=== PATIENT | female | born 1985 | race Caucasian/White ===

== ENCOUNTER → 2017-04-01 | Outpatient (CLI) | payer MEDICAID ==
[~2017-04-01] MED LIST: ADDE30TA PO; BACT800T5 PO; DIAZ10 PO; FLUO10TA PO; LORTA5 PO
== END ==
LOC: HPND 08:51
PROVIDERS: ATTEND Obstetrics & Gynecology
DX: O35.1XX0 Maternal care for (suspected) chromosomal abnormality in fetus, not applicable or unspecified (principal)
CPT/HCPCS: 76811; 76825; 76827; 93325

== ENCOUNTER → 2017-04-27 | Outpatient (CLI) | payer MEDICAID | LOC: HPND 10:20 | PROVIDERS: ATTEND Obstetrics & Gynecology | DX: O35.2XX0 Maternal care for (suspected) hereditary disease in fetus, not applicable or unspecified (principal); O99.323 Drug use complicating pregnancy, third trimester; O99.333 Smoking (tobacco) complicating pregnancy, third trimester; Z3A.29 29 weeks gestation of pregnancy | CPT/HCPCS: 76816 ==

== ENCOUNTER → 2017-05-26 | Outpatient (CLI) | payer MEDICAID | LOC: HPND 09:53 | PROVIDERS: ATTEND Obstetrics & Gynecology | DX: O99.322 Drug use complicating pregnancy, second trimester (principal); O99.332 Smoking (tobacco) complicating pregnancy, second trimester | CPT/HCPCS: 76816 ==

== ENCOUNTER 2018-03-15 14:43 | Emergency (ER) | payer MEDICAID ==
[~2018-03-15] VITALS: Ht 162.6 cm; Wt 58.0 kg
[2018-03-15 15:09] VITALS: BP 113/59; PULSE 59; RESP 18; TEMP 98; O2SAT 97
[2018-03-15] MEDS ORDERED: MEDR4PAK PO (16:50)
[2018-03-15] MEDS ORDERED: NAPR500T2 PO (16:50)
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
[2018-03-15] MEDS ORDERED: NAPROXEN 500 MG TAB PO ONE (17:00)
== END 2018-03-15 17:32 | disposition home or self-care (01) ==
LOC: NEPD 14:43
DX: G62.9 Polyneuropathy, unspecified (principal); Z72.0 Tobacco use
CPT/HCPCS: 99283; L3908

== ENCOUNTER 2018-04-11 00:03 | Inpatient (IN) ==
[2018-04-11] MEDS ORDERED: Acetaminophen 500 MG Tablet PO ONE (02:24)
[2018-04-11] MEDS ORDERED: Acetaminophen 325 MG Tablet ONE (02:42)
[2018-04-11] MEDS ORDERED: Acetaminophen 325 MG Tablet PO ONE (02:47)
--- NOTE | 2018-04-11 03:01 | ED ---
HPI General Chief Complaint: Chest Pain Stated Complaint: CHEST PAIN Time Seen by Provider: 04/11/18 02:24 Source: patient Mode of arrival: ambulatory Limitations: no limitations History of Present Illness HPI narrative: 33-year-old female presents to the emergency for complaint of retrosternal chest pain 5-6 hours. Patient also complains of shortness of breath with dizziness. No sweats no nausea no vomiting. Patient is taken no medications prior to arrival to the emergency department. Patient has prior history of similar discomfort although not as intense and not as long-lasting. Patient rates her pain 7/10 in intensity. Patient is unable to identify exacerbating or alleviating factors. No referred neck jaw back shoulder arm or abdominal pain. Patient denies known history of hypertension dyslipidemia diabetes CAD. Patient admits to tobacco use denies alcohol or substance use. Last menstrual period 9 months ago at time of delivery of son reportedly. Patient has not had menses during that timeframe. Patient has not followed up with PHOTO MANAGER. Complete Quality Measures for STEMI Alert Patients Duration: constant Pain location: substernal Severity: moderate Quality: tightness Pain radiation: none Relieving factors: nothing Exacerbating factors: nothing Related Data On Oral Contraceptives: No Home Medications Medication Instructions Recorded Confirmed No Known Home Medications 04/11/18 04/11/18 Allergies Allergy/AdvReac Type Severity Reaction Status Date / Time *MDRO Multi-Drug Resistant AdvReac Unknown Uncoded 03/15/18 16:31 Organism Review of Systems ROS Unobtainable All other systems reviewed negative except as stated in HPI PMFSH Social History Social History Substance History: Past History Smoking Status: Current every day smoker Tobacco Type: Cigarettes How Often Do You Have a Drink Containing Alcohol: Never Recent Travel in [facility] within the Last 8 Weeks: No Recent Out of Country Travel within the Last 8 Weeks: No Exam Narrative Exam Narrative: GENERAL: Well-nourished, well-developed patient. SKIN: Focused skin assessment warm/dry. HEAD: Normocephalic. EYES: No scleral icterus. No injection or drainage. NECK: Supple, trachea midline. No JVD or lymphadenopathy. CARDIOVASCULAR: Regular rate and rhythm without murmurs, gallops, or rubs. RESPIRATORY: Breath sounds equal bilaterally. No accessory muscle use. GASTROINTESTINAL: Abdomen soft, non-tender, nondistended. MUSCULOSKELETAL: No cyanosis, or edema. BACK: Nontender without obvious deformity. No CVA tenderness. Course Reevaluation(s) Reevaluation #1: Patient placed on medical claims assistant with continuous pulse oximetry IV access obtained specimens collected and sent for resulting EKG performed which reveals no acute ST elevation injury pattern sinus tachycardia rate 102 normal axis and intervals, artifact present at baseline; patient administered Toradol 30 mg IV Reevaluation #2: Metabolic panel values grossly normal range except for potassium of 5.2 secondary to moderate hemolysis Patient requesting acetaminophen for headache complaint; Tylenol 650 mg p.o. 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; discussed with admitting MD Dr Matthew Initial Documented Vital Signs Temperature 99.1 F 04/11/18 01:59 Pulse Rate 98 H 04/11/18 01:59 Respiratory Rate 20 04/11/18 01:59 Blood Pressure 128/67 04/11/18 01:59 Pulse Oximetry 99 04/11/18 01:59 Last Documented Vital Signs Temperature 98.0 F 04/11/18 03:18 Pulse Rate 88 04/11/18 05:56 Respiratory Rate 18 04/11/18 03:18 Blood Pressure 126/70 04/11/18 03:18 Pulse Oximetry 98 04/11/18 03:18 Clinical Decision Support HEART Score Questions History: Slightly suspicious EKG: Normal Age: < 45 years Risk Factors: 1-2 Risk Factors (tobacco use; h/o substance use) Initial Troponin: Greater than 3 x Normal Limit Heart Score HEART Score: 3 3 Medical Decision Making Lab Data Result diagrams: 04/11/18 00:45 04/11/18 00:45 Lab Results 04/11/18 04/11/18 04/11/18 Range/Units 00:45 00:45 00:45 WBC 12.6 H (4.0-11.0) th/mm3 RBC 4.59 (4.00-5.30) mil/mm3 Hgb 13.8 (11.6-15.3) gm/dL Hct 41.5 (35.0-46.0) % MCV 90.4 (80.0-100.0) fL MCH 30.0 (27.0-34.0) pg MCHC 33.2 (32.0-36.0) % RDW 13.6 (11.6-17.2) % Plt Count 225 (150-450) th/mm3 MPV 7.7 (7.0-11.0) fL Neut % (Auto) 71.1 H (16.0-70.0) % Lymph % (Auto) 21.0 (9.0-44.0) % [place] % (Auto) 7.2 (0.0-8.0) % Eos % (Auto) 0.1 (0.0-4.0) % Baso % (Auto) 0.6 (0.0-2.0) % Neut # (Auto) 9.0 H (1.8-7.7) th/mm3 Lymph # (Auto) 2.6 (1.0-4.8) th/mm3 [place] # (Auto) 0.9 (0.0-0.9) th/mm3 Eos # (Auto) 0.0 (0.0-0.4) th/mm3 Baso # (Auto) 0.1 (0.0-0.2) th/mm3 WBC Differential . Differential Comment Auto diff final PT (9.8-11.6) sec INR Ratio APTT (24.3-30.1) sec D-Dimer Quant (PE/DVT) (0.00-0.50) mg/L FEU Sodium 139 (136-145) meq/L Potassium 5.2 H (3.5-5.1) meq/L Chloride 102 (98-107) meq/L Carbon Dioxide 27.5 (21.0-32.0) meq/L Anion Gap 10 (5-15) meq/L BUN 17 (7-18) mg/dL Creatinine 1.00 (0.50-1.00) mg/dL Estimated GFR 65 L (>89) mL/min Random Glucose 91 (74-106) mg/dL Calcium 9.2 (8.5-10.1) mg/dL Total Bilirubin 0.4 (0.2-1.0) mg/dL AST 86 H (15-37) U/L ALT 74 H (10-53) U/L Alkaline Phosphatase 76 (45-117) U/L Total Creatine Kinase 1356 H (26-192) U/L CK-MB (CK-2) 3.8 H (0.5-3.6) ng/mL CK-MB (CK-2) % 0.3 (0.0-4.0) % Troponin I 0.25 H (0.02-0.05) ng/mL Total Protein 8.8 H (6.4-8.2) g/dL Albumin 4.2 (3.4-5.0) g/dL Ur Collection Type Random Urine Color Yellow (Yellw/Straw) Urine Clarity Hazy H (Clear) Urine pH 6.0 (5.0-8.5) Ur Specific [place] 1.021 (1.002-1.035) Urine Protein Negative (Neg-Trace) mg/dL Urine Glucose (UA) Negative (Negative) mg/dL Urine Ketones Trace (Negative) mg/dL Urine Occult Blood Negative (Negative) Urine Nitrate Negative (Negative) Urine Bilirubin Negative (Negative) Urine Urobilinogen 2.0 H (Less than 2) mg/dL Ur Leukocyte Esterase Small (Negative) Urine RBC Less than 1 (0-3) /hpf Urine WBC 2 (0-5) /hpf Urine Mucus Few H (Occasional) /lpf Micro UA Comment Culture not ind Urine Culture Comments Culture not ind Urine Collection Time 115 hours Urine Opiates Screen (Neg) Ur Barbiturates Screen (Neg) Ur Amphetamines Screen (Neg) U Benzodiazepines Scrn (Neg) Urine Cocaine Screen (Neg) U Cannabinoids Screen (Neg) 04/11/18 04/11/18 Range/Units 00:45 00:45 WBC (4.0-11.0) th/mm3 RBC (4.00-5.30) mil/mm3 Hgb (11.6-15.3) gm/dL Hct (35.0-46.0) % MCV (80.0-100.0) fL MCH (27.0-34.0) pg MCHC (32.0-36.0) % RDW (11.6-17.2) % Plt Count (150-450) th/mm3 MPV (7.0-11.0) fL Neut % (Auto) (16.0-70.0) % Lymph % (Auto) (9.0-44.0) % [place] % (Auto) (0.0-8.0) % Eos % (Auto) (0.0-4.0) % Baso % (Auto) (0.0-2.0) % Neut # (Auto) (1.8-7.7) th/mm3 Lymph # (Auto) (1.0-4.8) th/mm3 [place] # (Auto) (0.0-0.9) th/mm3 Eos # (Auto) (0.0-0.4) th/mm3 Baso # (Auto) (0.0-0.2) th/mm3 WBC Differential Differential Comment PT 10.1 (9.8-11.6) sec INR 1.0 Ratio APTT 21.0 L (24.3-30.1) sec D-Dimer Quant (PE/DVT) 0.39 (0.00-0.50) mg/L FEU Sodium (136-145) meq/L Potassium (3.5-5.1) meq/L Chloride (98-107) meq/L Carbon Dioxide (21.0-32.0) meq/L Anion Gap (5-15) meq/L BUN (7-18) mg/dL Creatinine (0.50-1.00) mg/dL Estimated GFR (>89) mL/min Random Glucose (74-106) mg/dL Calcium (8.5-10.1) mg/dL Total Bilirubin (0.2-1.0) mg/dL AST (15-37) U/L ALT (10-53) U/L Alkaline Phosphatase (45-117) U/L Total Creatine Kinase (26-192) U/L CK-MB (CK-2) (0.5-3.6) ng/mL CK-MB (CK-2) % (0.0-4.0) % Troponin I (0.02-0.05) ng/mL Total Protein (6.4-8.2) g/dL Albumin (3.4-5.0) g/dL Ur Collection Type Urine Color (Yellw/Straw) Urine Clarity (Clear) Urine pH (5.0-8.5) Ur Specific [place] (1.002-1.035) Urine Protein (Neg-Trace) mg/dL Urine Glucose (UA) (Negative) mg/dL Urine Ketones (Negative) mg/dL Urine Occult Blood (Negative) Urine Nitrate (Negative) Urine Bilirubin (Negative) Urine Urobilinogen (Less than 2) mg/dL Ur Leukocyte Esterase (Negative) Urine RBC (0-3) /hpf Urine WBC (0-5) /hpf Urine Mucus (Occasional) /lpf Micro UA Comment Urine Culture Comments Urine Collection Time hours Urine Opiates Screen Neg (Neg) Ur Barbiturates Screen Neg (Neg) Ur Amphetamines Screen Pos H (Neg) U Benzodiazepines Scrn Neg (Neg) Urine Cocaine Screen Neg (Neg) U Cannabinoids Screen Neg (Neg) Imaging Data Radiologist's impression: ITS Impressions Chest X-Ray 04/11/18 05:11 CONCLUSION: No active disease. Discharge Plan Discharge Disposition Patient Disposition: 30 Still Patient Discharge Details Discharge Problem: Chest pain, Substance abuse Physicians Team ED Provider: Marcia Rivera ED Midlevel Provider: Kevin Bingham Primary Care Provider: Primary Care Anna Gallardo Attending Provider: Tip Coates Discharge Interventions Interventions: Vital Signs Last Done: 04/11/18 03:18 Status ED Status: Admitted Patient
[2018-04-11 03:08] LABS: Prothrombin Time 10.1 sec (9.8-11.6)
[2018-04-11 03:09] LABS: D-Dimer 0.39 mg/L FEU (0.00-0.50)
[2018-04-11 03:11] LABS: Baso # (Auto) 0.1 th/mm3 (0.0-0.2); Baso % (Auto) 0.6 % (0.0-2.0); Collection Time,Urine 115 hours; Eos % (Auto) 0.1 % (0.0-4.0); Hematocrit 41.5 % (35.0-46.0); Hemoglobin 13.8 gm/dL (11.6-15.3); Lymph # (Auto) 2.6 th/mm3 (1.0-4.8); Mean Corpuscular HGB Conc 33.2 % (32.0-36.0); Mean Corpuscular Volume 90.4 fL (80.0-100.0); Mean Platelet Volume 7.7 fL (7.0-11.0); Mono # (Auto) 0.9 th/mm3 (0.0-0.9); Mono % (Auto) 7.2 % (0.0-8.0); Neut % (Auto) 71.1 % (16.0-70.0); Platelet Count 225 th/mm3 (150-450); Red Blood Count 4.59 mil/mm3 (4.00-5.30); Red Cell Distribution Width 13.6 % (11.6-17.2); White Blood Count 12.6 th/mm3 (4.0-11.0)
[2018-04-11 03:12] LABS: Bilirubin,Urine Negative (Negative); Clarity,Urine Hazy (Clear); Color,Urine Yellow (Yellw/Straw); Glucose,Urine (UA) Negative (Negative); Leukocyte Esterase,Urine Small (Negative); Nitrite,Urine Negative (Negative); Specific Gravity,Urine 1.021 (1.002-1.035)
[2018-04-11 03:13] LABS: Mucus,Urine Few /lpf (Occasional)
[2018-04-11 03:48] LABS: Alanine Aminotransferase 74 U/L (10-53); Albumin 4.2 g/dL (3.4-5.0); Alkaline Phosphatase 76 U/L (45-117); Anion Gap 10 meq/L (5-15); Aspartate Aminotransferase 86 U/L (15-37); Blood Urea Nitrogen 17 mg/dL (7-18); Calcium 9.2 mg/dL (8.5-10.1); Carbon Dioxide 27.5 meq/L (21.0-32.0); Chloride 102 meq/L (98-107); Creatine Kinase 1356 U/L (26-192); Glomerular Filtration Rate 65 mL/min (>89); Glucose,Random 91 mg/dL (74-106); Potassium 5.2 meq/L (3.5-5.1); Sodium 139 meq/L (136-145); Total Protein 8.8 g/dL (6.4-8.2); Troponin I 0.25 ng/mL (0.02-0.05)
[2018-04-11 04:03] LABS: CKMB Percent 0.3 % (0.0-4.0); Creatine Kinase MB 3.8 ng/mL (0.5-3.6)
[2018-04-11 04:06] LABS: Amphetamine Screen,Urine Pos (Neg); Barbiturate Screen,Urine Neg (Neg); Cannabinoid Screen,Urine Neg (Neg); Cocaine Screen,Urine Neg (Neg); Opiate Screen,Urine Neg (Neg)
[2018-04-11] MEDS ORDERED: Morphine Inj 4 MG/ML Vial IV.PUSH PRN (05:45)
[2018-04-11] MEDS ORDERED: Acetaminophen 500 MG Tablet PO PRN (05:45)
--- NOTE | 2018-04-11 06:12 | XR ---
EXAM DATE: 04/11/2018 5:56 AM EDT AGE/SEX: 33 years / Female INDICATIONS: Chest pain. CLINICAL DATA: This is the patient's initial encounter. Patient reports that signs and symptoms have been present for 1 day and indicates a pain score of 6/10. MEDICAL/SURGICAL HISTORY: None. None. COMPARISON: No prior exams available for comparison. FINDINGS: A single AP view of the chest demonstrates the lungs to be symmetrically aerated without evidence of mass, infiltrate or effusion. The cardiomediastinal contours are unremarkable. Osseous structures a re intact. CONCLUSION: No active disease. Electronically signed by: Kevin Pardo MD 04/11/2018 6:11 AM EDT
[2018-04-11] MEDS: Sod Chloride 0.9% Inj 1,000 ML IV.CONT SCH ×2 (06:25→07:00)
[2018-04-11 07:57] LABS: Troponin I 0.19 ng/mL (0.02-0.05)
[2018-04-11 08:12] LABS: CKMB Percent 0.3 % (0.0-4.0); Creatine Kinase MB 3.3 ng/mL (0.5-3.6)
[2018-04-11] MEDS ORDERED: Aspirin 325 MG Tablet PO SCH (09:00)
[2018-04-11] MEDS ORDERED: Methadone 10 MG Tablet PO ONE (09:07)
[2018-04-11] MEDS ORDERED: Sod Chloride 0.9% Inj 1,000 ML IV.CONT SCH (11:18)
--- NOTE | 2018-04-11 11:58 | P.HPHBS ---
Reason for Admit/HPI Reason for Admission: chest pain History of Present Illness: Patient is a 33 years old female jian smokes 1 pack per day, history of ADHD, history of substance abuse now on methadone ff by methadone clinic on 145 mg daily, lives iwth her mom who came in because of chest pain substernal while walking. patient states that she has been trying to get into shape and has been jogging more and since last evening complains of intermittent throbbing chest pain associated with lightheadedness. denies any fever or chills, nausea vomiting, or diarrhea, no urinary symptoms. Admits to not taking enough fluids patient at bedside is very emotional and tearful. admitted for further evaluation EKG shows sinus tachycardia- no acute STTw changes PMFSH - History History Provided By: Patient - Medical History Medical History: Medical History (Last Reviewed 04/11/18 @ 11:51 by Tip Coates MD) delivery delivered Drug abuse Ectopic , tubal - Family History Family History: Family History (Last Updated 04/11/18 @ 11:51 by Tip Coates MD) Father No problems noted. Mother Substance abuse - Tobacco History Tobacco Use In Past 30 Days: Yes Smoking Status: Current every day smoker Tobacco Type: Cigarettes - Alcohol History How Often Do You Have a Drink Containing Alcohol: Never - Substance Use History Substance History: Past History - Substance Use Type Methamphetamine Status: Early Remission - Travel History Recent Travel in the [place] Within the Last 8 Weeks: No Recent Travel Out of the Country Within the Last 8 Weeks: No - Immunization History Tetanus Immunization: Unsure Medications and Allergies Active Medications: Active Medications Acetaminophen (Tylenol) 500 mg PO Q4H PRN PRN Reason: HEADACHE Hydrocodone Bitart/Acetaminophen ([place] 7.5/325) 1 tab PO Q4H PRN PRN Reason: PAIN SCALE 1 TO 5 Last Admin: 04/11/18 08:28 Dose: 1 tab Aspirin (Aspirin) 325 mg PO DAILY SIMON Last Admin: 04/11/18 10:11 Dose: 325 mg Sodium Chloride (Ns Inj) 1,000 mls @ 125 mls/hr IV.CONT .Q8H SIMON Sodium Chloride (Ns Inj) 1,000 mls @ 100 mls/hr IV.CONT .Q10H SIMON Last Admin: 04/11/18 07:00 Dose: Not Given Methadone HCl (Dolophine) 145 mg PO DAILY [facility] Miscellaneous (Pill Splitter) 1 each OTHER UNSCH [facility] Morphine Sulfate (Morphine Inj) 2 mg IV.PUSH Q3H PRN PRN Reason: PAIN SCALE 6 TO 10 Nitroglycerin (Nitrostat Sl) 0.4 mg SL Q5M PRN PRN Reason: ANGINA Sodium Chloride (Ns Flush) 2 ml IV.FLUSH BID SIMON Sodium Chloride (Ns Flush) 2 ml IV.FLUSH PRN PRN PRN Reason: FLUSH AFTER USING IV ACCESS Allergies Allergy/AdvReac Type Severity Reaction Status Date / Time *MDRO Multi-Drug Resistant AdvReac Unknown Uncoded 03/15/18 16:31 Organism Home Medications Medication Instructions Recorded Confirmed Type methadone 145 mg PO DAILY 04/11/18 04/11/18 History Physical Exam Vital signs: Vital Signs 04/11/18 01:59 04/11/18 03:18 04/11/18 05:56 Temperature 99.1 F 98.0 F Pulse Rate 98 H 88 88 Respiratory Rate 20 18 Blood Pressure 128/67 126/70 Pulse Oximetry 99 98 04/11/18 08:30 Temperature 98.7 F Pulse Rate 98 H Respiratory Rate 17 Blood Pressure 120/61 Pulse Oximetry Intake & Output 04/10/18 04/11/18 04/11/18 18:59 06:59 18:59 Weight 60 kg - Constitutional no acute distress Comments: tearful adn amotional - Routine HEENT Exam Head: Present: normocephalic Eye: Present: EOMI ENT: Present: mucous membranes moist - Routine Neck Exam Present: supple - Routine Respiratory Exam Present: CTA bilaterally - Routine Cardiovascular Exam Present: RRR Comments: chest wall tender to even miimal touch - Routine Abdominal Exam Present: soft, normoactive bowel sounds - Routine Extremities Exam Present: full ROM, pulses intact (no edema), normal capillary refill - Routine Neurological Exam Present: alert, oriented X3, CN II-XII intact, normal reflexes, moving all extremities - Routine Psychiatric Exam Present: anxious (and emotional) Results - Labs CBC & Chem 7: 04/11/18 00:45 04/11/18 00:45 Labs: Laboratory Results - last 24 hr 04/11/18 04/11/18 04/11/18 00:45 00:45 00:45 WBC 12.6 H RBC 4.59 Hgb 13.8 Hct 41.5 MCV 90.4 MCH 30.0 MCHC 33.2 RDW 13.6 Plt Count 225 MPV 7.7 Neut % (Auto) 71.1 H Lymph % (Auto) 21.0 [place] % (Auto) 7.2 Eos % (Auto) 0.1 Baso % (Auto) 0.6 Neut # (Auto) 9.0 H Lymph # (Auto) 2.6 [place] # (Auto) 0.9 Eos # (Auto) 0.0 Baso # (Auto) 0.1 WBC Differential . Differential Comment Auto diff final PT INR APTT D-Dimer Quant (PE/DVT) Sodium 139 Potassium 5.2 H Chloride 102 Carbon Dioxide 27.5 Anion Gap 10 BUN 17 Creatinine 1.00 Estimated GFR 65 L Random Glucose 91 Calcium 9.2 Total Bilirubin 0.4 AST 86 H ALT 74 H Alkaline Phosphatase 76 Total Creatine Kinase 1356 H CK-MB (CK-2) 3.8 H CK-MB (CK-2) % 0.3 Troponin I 0.25 H Total Protein 8.8 H Albumin 4.2 Ur Collection Type Random Urine Color Yellow Urine Clarity Hazy H Urine pH 6.0 Ur Specific [place] 1.021 Urine Protein Negative Urine Glucose (UA) Negative Urine Ketones Trace Urine Occult Blood Negative Urine Nitrate Negative Urine Bilirubin Negative Urine Urobilinogen 2.0 H Ur Leukocyte Esterase Small Urine RBC Less than 1 Urine WBC 2 Urine Mucus Few H Micro UA Comment Culture not ind Urine Culture Comments Culture not ind Urine Collection Time 115 Urine Opiates Screen Ur Barbiturates Screen Ur Amphetamines Screen U Benzodiazepines Scrn Urine Cocaine Screen U Cannabinoids Screen 04/11/18 04/11/18 04/11/18 00:45 00:45 06:20 WBC RBC Hgb Hct MCV MCH MCHC RDW Plt Count MPV Neut % (Auto) Lymph % (Auto) [place] % (Auto) Eos % (Auto) Baso % (Auto) Neut # (Auto) Lymph # (Auto) [place] # (Auto) Eos # (Auto) Baso # (Auto) WBC Differential Differential Comment PT 10.1 INR 1.0 APTT 21.0 L D-Dimer Quant (PE/DVT) 0.39 Sodium Potassium Chloride Carbon Dioxide Anion Gap BUN Creatinine Estimated GFR Random Glucose Calcium Total Bilirubin AST ALT Alkaline Phosphatase Total Creatine Kinase 1178 H CK-MB (CK-2) 3.3 CK-MB (CK-2) % 0.3 Troponin I 0.19 H Total Protein Albumin Ur Collection Type Urine Color Urine Clarity Urine pH Ur Specific [place] Urine Protein Urine Glucose (UA) Urine Ketones Urine Occult Blood Urine Nitrate Urine Bilirubin Urine Urobilinogen Ur Leukocyte Esterase Urine RBC Urine WBC Urine Mucus Micro UA Comment Urine Culture Comments Urine Collection Time Urine Opiates Screen Neg Ur Barbiturates Screen Neg Ur Amphetamines Screen Pos H U Benzodiazepines Scrn Neg Urine Cocaine Screen Neg U Cannabinoids Screen Neg - Imaging Impressions Chest X-Ray 04/11/18 05:11 CONCLUSION: No active disease. Assessment and Plan - Plan * Involve patient in individual, family and milieu therapies. * Evaluate medication regiment. * Observe and evaluate for appropriate behavior on unit. * Discuss and plan for appropriate after care. Goals: * Evaluate symptoms of current psychiatric problem(s) * Stabilize behaviors and improve functionality * Diminish relationship conflicts * Improve academic performance Assessment: 33 years old feamle Chest pain- likely musculoskeletal pain- EKG negtive troponin indeterminate- doubt cardiac no chest pain free- but reproducible Acute rhabdomyolysis =- start IVF - NS 125 cc/hr - ff CK trend Elevated LFTs- - can be from rhabdomylysis - montior Methadon use History of ADHD - restart methadone- dose confirmed with emthadone clinic - OP ff upwith Dr. Weston Smoker - counselled -Nicotine patch amenorrhea for 2 years - advise OP ff up for work up with PCP - Discharge Discharge Criteria: * Denies suicidal ideation * Denies homicidal ideation * No evidence of psychosis
[2018-04-11 13:18] VITALS: RESP 18
[2018-04-11 13:50] VITALS: TEMP 98.3
--- NOTE | 2018-04-11 21:41 | P.HP ---
History of Present Illness Primary Care Physician: No Primary Care Physician History of Present Illness: Patient is a 33 years old female jian smokes 1 pack per day, history of ADHD, history of substance abuse now on methadone ff by methadone clinic on 145 mg daily, lives iwth her mom who came in because of chest pain substernal while walking. patient states that she has been trying to get into shape and has been jogging more and since last evening complains of intermittent throbbing chest pain associated with lightheadedness. denies any fever or chills, nausea vomiting, or diarrhea, no urinary symptoms. Admits to not taking enough fluids patient at bedside is very emotional and tearful. admitted for further evaluation EKG shows sinus tachycardia- no acute STTw changes - Inpatient Certification If this patient has been admitted as an Inpatient: I certify that the inpatient services were ordered in accordance with Medicare regulations governing the order. This includes certification that hospital inpatient services are reasonable and necessary and in the case of services not specified as inpatient-only under 42 CFR 419.22(n), that they are appropriately provided as inpatient services in accordance to with the 2-midnight benchmark under 43 CFR 412.3(e) Estimated Total Length of Stay (Days): 2 Plans for Post Hospital Care: Home Review of Systems All other systems reviewed negative except as stated in HPI PMFSH - History History Provided By: Patient - Medical History Medical History: Medical History (Last Reviewed 04/11/18 @ 12:20 by Jade Tate RN) delivery delivered Drug abuse Ectopic , tubal - Family History Family History: Family History (Last Reviewed 04/11/18 @ 12:20 by Jade Tate RN) Father No problems noted. Mother Substance abuse - Tobacco History Tobacco Use In Past 30 Days: Yes Smoking Status: Current every day smoker Tobacco Type: Cigarettes - Alcohol History How Often Do You Have a Drink Containing Alcohol: Never - Substance Use History Substance History: Past History - Substance Use Type Methamphetamine Status: Early Remission - Travel History Recent Travel in the [place] Within the Last 8 Weeks: No Recent Travel Out of the Country Within the Last 8 Weeks: No - Immunization History Tetanus Immunization: Unsure Medications and Allergies Allergies Allergy/AdvReac Type Severity Reaction Status Date / Time *MDRO Multi-Drug Resistant AdvReac Unknown Uncoded 03/15/18 16:31 Organism Home Medications Medication Instructions Recorded Confirmed Type methadone 145 mg PO DAILY 04/11/18 04/11/18 History Exam Vital signs: Vital Signs 04/11/18 01:59 04/11/18 03:18 04/11/18 05:56 Temperature 99.1 F 98.0 F Pulse Rate 98 H 88 88 Respiratory Rate 20 18 Blood Pressure 128/67 126/70 Pulse Oximetry 99 98 04/11/18 08:30 04/11/18 09:00 04/11/18 12:00 Temperature 98.7 F 97.9 F 98.3 F Pulse Rate 98 H 80 86 Respiratory Rate 17 18 18 Blood Pressure 120/61 122/73 117/57 L Pulse Oximetry 100 04/11/18 13:00 04/11/18 14:56 04/11/18 16:00 Temperature 98.3 F Pulse Rate 97 H 85 79 Respiratory Rate 18 Blood Pressure 124/71 Pulse Oximetry 98 Intake & Output 04/11/18 04/11/18 04/12/18 06:59 18:59 06:59 Weight 60 kg 55.868 kg Other: Weight On Admission 55.792 kg Narrative: - Constitutional no acute distress Comments: tearful and emotional - Routine HEENT Exam Head: Present: normocephalic Eye: Present: EOMI ENT: Present: mucous membranes moist - Routine Neck Exam Present: supple - Routine Respiratory Exam Present: CTA bilaterally - Routine Cardiovascular Exam Present: RRR Comments: chest wall tender to even miimal touch - Routine Abdominal Exam Present: soft, normoactive bowel sounds - Routine Extremities Exam Present: full ROM, pulses intact (no edema), normal capillary refill - Routine Neurological Exam Present: alert, oriented X3, CN II-XII intact, normal reflexes, moving all extremities - Routine Psychiatric Exam Present: anxious (and emotional) Results - Labs CBC & Chem 7: 04/11/18 00:45 04/11/18 00:45 Labs: Laboratory Results - last 24 hr 04/11/18 04/11/18 04/11/18 00:45 00:45 00:45 WBC 12.6 H RBC 4.59 Hgb 13.8 Hct 41.5 MCV 90.4 MCH 30.0 MCHC 33.2 RDW 13.6 Plt Count 225 MPV 7.7 Neut % (Auto) 71.1 H Lymph % (Auto) 21.0 [place] % (Auto) 7.2 Eos % (Auto) 0.1 Baso % (Auto) 0.6 Neut # (Auto) 9.0 H Lymph # (Auto) 2.6 [place] # (Auto) 0.9 Eos # (Auto) 0.0 Baso # (Auto) 0.1 WBC Differential . Differential Comment Auto diff final PT INR APTT D-Dimer Quant (PE/DVT) Sodium 139 Potassium 5.2 H Chloride 102 Carbon Dioxide 27.5 Anion Gap 10 BUN 17 Creatinine 1.00 Estimated GFR 65 L Random Glucose 91 Calcium 9.2 Total Bilirubin 0.4 AST 86 H ALT 74 H Alkaline Phosphatase 76 Total Creatine Kinase 1356 H CK-MB (CK-2) 3.8 H CK-MB (CK-2) % 0.3 Troponin I 0.25 H Total Protein 8.8 H Albumin 4.2 Ur Collection Type Random Urine Color Yellow Urine Clarity Hazy H Urine pH 6.0 Ur Specific [place] 1.021 Urine Protein Negative Urine Glucose (UA) Negative Urine Ketones Trace Urine Occult Blood Negative Urine Nitrate Negative Urine Bilirubin Negative Urine Urobilinogen 2.0 H Ur Leukocyte Esterase Small Urine RBC Less than 1 Urine WBC 2 Urine Mucus Few H Micro UA Comment Culture not ind Urine Culture Comments Culture not ind Urine Collection Time 115 Urine Opiates Screen Ur Barbiturates Screen Ur Amphetamines Screen U Benzodiazepines Scrn Urine Cocaine Screen U Cannabinoids Screen 04/11/18 04/11/18 04/11/18 00:45 00:45 06:20 WBC RBC Hgb Hct MCV MCH MCHC RDW Plt Count MPV Neut % (Auto) Lymph % (Auto) [place] % (Auto) Eos % (Auto) Baso % (Auto) Neut # (Auto) Lymph # (Auto) [place] # (Auto) Eos # (Auto) Baso # (Auto) WBC Differential Differential Comment PT 10.1 INR 1.0 APTT 21.0 L D-Dimer Quant (PE/DVT) 0.39 Sodium Potassium Chloride Carbon Dioxide Anion Gap BUN Creatinine Estimated GFR Random Glucose Calcium Total Bilirubin AST ALT Alkaline Phosphatase Total Creatine Kinase 1178 H CK-MB (CK-2) 3.3 CK-MB (CK-2) % 0.3 Troponin I 0.19 H Total Protein Albumin Ur Collection Type Urine Color Urine Clarity Urine pH Ur Specific [place] Urine Protein Urine Glucose (UA) Urine Ketones Urine Occult Blood Urine Nitrate Urine Bilirubin Urine Urobilinogen Ur Leukocyte Esterase Urine RBC Urine WBC Urine Mucus Micro UA Comment Urine Culture Comments Urine Collection Time Urine Opiates Screen Neg Ur Barbiturates Screen Neg Ur Amphetamines Screen Pos H U Benzodiazepines Scrn Neg Urine Cocaine Screen Neg U Cannabinoids Screen Neg - Imaging Impressions Chest X-Ray 04/11/18 05:11 CONCLUSION: No active disease. Caprini VTE Risk Assessment Caprini VTE Risk Assessment: No/Low Risk (score <= 1) Caprini Risk Assessment Model: Point Value = 1 Point Value = 2 Point Value = 3 Point Value = 5 Age 41-60 Minor surgery BMI > 25 kg/m2 Swollen legs Varicose veins or History of unexplained or recurrent spontaneous Oral contraceptives or hormone replacement Sepsis (< 1 month) Serious lung disease, including pneumonia (< 1 month) Abnormal pulmonary function Acute myocardial infarction Congestive heart failure (< 1 month) History of inflammatory bowel disease Medical patient at bed rest Age 61-74 Arthroscopic surgery Major open surgery (> 45 min) Laparoscopic surgery (> 45 min) Malignancy Confined to bed (> 72 hours) Immobilizing plaster cast Central venous access Age >= 75 History of VTE Family history of VTE Factor V Leiden Prothrombin [id number] Lupus anticoagulant Anticardiolipin antibodies Elevated serum homocysteine Heparin-induced thrombocytopenia Other congenital or acquired thrombophilia Stroke (< 1 month) Elective arthroplasty Hip, pelvis, or leg fracture Acute spinal cord injury (< 1 month) Prophylaxis Regimen: Total Risk Factor Score Risk Level Prophylaxis Regimen 0-1 Low Early ambulation 2 Moderate Order ONE of the following: *Sequential Compression Device (SCD) *Heparin 5000 units SQ BID 3-4 Higher Order ONE of the following medications: *Heparin 5000 units SQ TID *Enoxaparin/Lovenox 40 mg SQ daily (WT < 150 kg, CrCl > 30 mL/min) *Enoxaparin/Lovenox 30 mg SQ daily (WT < 150 kg, CrCl > 10-29 mL/min) *Enoxaparin/Lovenox 30 mg SQ BID (WT < 150 kg, CrCl > 30 mL/min) AND/OR *Sequential Compression Device (SCD) 5 or more Highest Order ONE of the following medications: *Heparin 5000 units SQ TID (Preferred with Epidurals) *Enoxaparin/Lovenox 40 mg SQ daily (WT < 150 kg, CrCl > 30 mL/min) *Enoxaparin/Lovenox 30 mg SQ daily (WT < 150 kg, CrCl > 10-29 mL/min) *Enoxaparin/Lovenox 30 mg SQ BID (WT < 150 kg, CrCl > 30 mL/min) AND *Sequential Compression Device (SCD) Assessment and Plan - Plan 33 years old feamle Chest pain- likely musculoskeletal pain- EKG negtive troponin indeterminate- doubt cardiac no chest pain free- but reproducible Acute rhabdomyolysis =- start IVF - NS 125 cc/hr - ff CK trend Elevated LFTs- - can be from rhabdomyolysis - monitor Methadon use History of ADHD - restart methadone- dose confirmed with emthadone clinic - OP ff up with Dr. Weston Smoker - counselled -Nicotine patch amenorrhea for 2 years - advise OP ff up for work up with PCP
--- NOTE | 2018-04-12 00:09 | ECG ---
Date Performed: 04/11/2018 Time Performed: 06:20:39 PTAGE: 33 years EKG: Sinus rhythm NORMAL ECG PREVIOUS TRACING : 04/11/2018 00.25 Since the previous tracing, no significant change noted DOCTOR: Trey Zazueta Interpretating Date/Time 04/12/2018 00:08:48
--- NOTE | 2018-04-12 00:13 | ECG ---
Date Performed: 04/11/2018 Time Performed: 00:25:20 PTAGE: 33 years EKG: SINUS TACHYCARDIA ABNORMAL RHYTHM ECG PREVIOUS TRACING : 06/13/2016 10.31 Compared to previous tracing, rate has increased DOCTOR: Trey Zazueta Interpretating Date/Time 04/12/2018 00:11:50
[2018-04-12] MEDS ORDERED: Methadone 10 MG Tablet PO SCH (09:00)
[2018-04-13 12:40] VITALS: BP 124/71; PULSE 79; O2SAT 98
== END 2018-04-11 16:35 | disposition home or self-care (01) ==
LOC: NEPC 00:03 → NEDA 05:53 → HCPC 08:50
PROVIDERS: ADMIT Internal Medicine; ATTEND Internal Medicine
DX: F11.90 Opioid use, unspecified, uncomplicated; F90.9 Attention-deficit hyperactivity disorder, unspecified type; M62.82 Rhabdomyolysis; N91.2 Amenorrhea, unspecified; M79.1 Myalgia; F17.210 Nicotine dependence, cigarettes, uncomplicated